=== PATIENT | female | born 1955 | race Caucasian/White ===

== ENCOUNTER → 2017-01-24 | Outpatient (CLI) | payer OTHER ==
[2015-10-31 09:20] VITALS: BP 148/70
[~2017-01-24] MED LIST: ALBU8.5H6 IH; ASPI-630 PO; CA C1TAB38 PO; CITA40TA12 PO; DOCU-109 PO; FAMO-63 PO; FERR324T5 PO; FURO-68 PO; INSU100I17 SQ; LOSA100T6 PO; METF500T4 PO; MULT1TAB97 PO; POTA20TA12 PO; SIMV20TA PO; SITA100T PO; TAMO20TA PO; TRAM-48 PO; VENL37.5 PO
--- NOTE | 2017-01-29 21:42 | RESP ---
DATE OF SERVICE: The patient underwent full PFTs dated 01/24/2017. FEV1 to FVC ratio was 79%, FEV1 was 97% of predicted at 2.53 liters, FVC was 93% of predicted at 3.18 liters. Vital capacity was 96% of predicted at 3.27 liters. Total lung capacity was not calculated. Diffusion capacity was slightly decreased. IMPRESSION: No evidence of significant restrictive or obstructive disorder. PRECIOUS RAYA MD DR: NJ/derrick JOB#: [id number] / [id number]
== END | disposition home or self-care (01) ==
LOC: PF 10:43
PROVIDERS: ATTEND Internal Medicine Pulmonary Disease
DX: R05 Cough (principal)
CPT/HCPCS: 94010; 94729

== ENCOUNTER → 2017-03-09 | Outpatient (CLI) | payer OTHER ==
[2015-10-31 09:20] VITALS: BP 148/70
--- NOTE | 2017-03-09 13:05 | RAD ---
CT chest without contrast high resolution 03/09/2017 Clinical indication: Chronic cough. Comparison: None. Technique: Multiple CT noncontrast images of the chest were obtained. Additional inspiratory and expiratory CT images were obtained. Coronal and sagittal reformations were obtained. PQRS Compliance Statement: One or more of the following individualized dose reduction techniques were utilized for this examination: 1. Automated exposure control 2. Adjustment of the mA and/or kV according to patient size 3. Use of iterative reconstruction technique Findings: Heart size is normal without significant pericardial effusion. Coronary artery calcifications are noted. No axillary lymphadenopathy. Mildly enlarged right paratracheal lymph nodes measuring up to 1.1 cm (series 4/image 18). No obvious hilar lymphadenopathy, though evaluation is limited due to lack of intravenous contrast. The central airways are patent. There is mild upper lobe predominant centrilobular and paraseptal emphysema. No pleural effusion or pneumothorax. There is a 4 mm noncalcified nodule in the right lower lobe (series 4/image 22). Subpleural reticular opacities and adjacent emphysema in the lung bases persist on prone imaging compatible with mild fibrosis. No significant air trapping. There is a medial right breast soft tissue density with adjacent biopsy clip measuring 1.9 x 1.0 cm (series 4/image 21). No destructive osseous lesions. Limited images of the upper abdomen grossly unremarkable. Impression: 1. Mild emphysema and mild bibasilar fibrosis. 2. Small, 4 mm, noncalcified right lower lobe pulmonary nodule. Follow-up noncontrast CT chest in 3 months is recommended. 3. Mildly enlarged paratracheal lymph nodes, these could be followed with the above findings. 4. Medial right breast irregular soft tissue nodule with adjacent biopsy clip measuring 1.9 cm. Indeterminate between benign and malignant. Correlation with mammography is recommended.
== END | disposition home or self-care (01) ==
LOC: CT 08:55
PROVIDERS: ATTEND Internal Medicine Pulmonary Disease
DX: N63 Unspecified lump in breast (principal); J43.9 Emphysema, unspecified; R91.1 Solitary pulmonary nodule; R05 Cough; R06.02 Shortness of breath
CPT/HCPCS: 71250

== ENCOUNTER → 2017-03-29 | Outpatient (CLI) | payer OTHER ==
[2015-10-31 09:20] VITALS: BP 148/70
--- NOTE | 2017-03-29 14:34 | CARD ---
APPROVED REPORT EXAM: Two-dimensional and M-mode echocardiogram with Doppler and color Doppler. Other Information Quality : Average Rhythm : NSR INDICATION Dyspnea 2D DIMENSIONS RVDd2.8 (2.9-3.5cm)Left Atrium(2D)4.0 (1.6-4.0cm) IVSd1.2 (0.7-1.1cm)Aortic Root(2D)2.7 (2.0-3.7cm) LVDd5.4 (3.9-5.9cm)LVOT Diameter2.0 (1.8-2.4cm) PWd1.2 (0.7-1.1cm)LVDs3.9 (2.5-4.0cm) FS (%) 26.7 %SV72.3 ml LVEF(%)51.7 (>50%) Aortic Valve AoV Peak Angel.139.3cm/sAoV VTI27.2cm AO Peak GR.7.8mmHgLVOT Peak Angel.84.5cm/s LVOT VTI 19.27cmAO Mean GR.4mmHg HUI (VTI)2.25cm2 Mitral Valve MV E Caovlifq74.8cm/sMV DECEL GORU504yz MV A Anaivevc97.3cm/sMV LOA13pf E/A Ratio1.1MV A Dbafifew813gu MVA (PHT)4.31cm2 TDI E/Lateral E'7.9E/Medial E'15.3 Pulmonary Valve PV Peak Hvchmvhp433.4cm/sPV Peak Grad.5mmHg RVOT VTI15.2cm Tricuspid Valve TR P. Vvuaexja841os/sRAP IACGJWEM4etIz TR Peak Gr.22pfCdZKFO36dcIr Pulmonary Vein S1 Actzacyt54.4cm/sD2 Qymdtmub64.1cm/s LEFT VENTRICLE The left ventricle is normal size. There is borderline concentric left ventricular hypertrophy. Left ventricle systolic function is normal. The Ejection Fraction is 50-55%. There is normal LV segmental wall motion. The left ventricular diastolic function and filling is normal for age. There is no ventr icular septal defect visualized. RIGHT VENTRICLE The right ventricle is normal size. The right ventricular systolic function is normal. ATRIA The left atrium size is normal. The right atrium size is normal. The interatrial septum is intact wit h no evidence for an atrial septal defect or patent foramen ovale as noted on 2-D or Doppler imaging. AORTIC VALVE The aortic valve is normal in structure and function. The aortic valve is trileaflet. Doppler and Col or Flow revealed trace aortic regurgitation. There is no significant aortic valvular stenosis. MITRAL VALVE The mitral valve leaflets are thickened. There is no mitral valve stenosis. Doppler and Color Flow re vealed no mitral valve regurgitation noted. TRICUSPID VALVE The tricuspid valve is normal in structure and function. Doppler and Color Flow revealed mild tricusp id regurgitation. The PA pressure was estimated at 38 mmHg. There is no tricuspid valve stenosis. PULMONIC VALVE The pulmonic valve is not well visualized. Doppler and Color Flow revealed no pulmonic valvular regur gitation. There is no pulmonic valvular stenosis. GREAT VESSELS The aortic root is normal in size. The ascending aorta is normal in size. Normal pulmonary venous maliha w (Doppler). The IVC is normal in size and collapses >50% with inspiration. PERICARDIAL EFFUSION There is no evidence of significant pericardial effusion. Critical Notification Critical Value: No <Conclusion> The left ventricle is normal size. Left ventricle systolic function is normal. The Ejection Fraction is 50-55%. There is borderline concentric left ventricular hypertrophy. There is no significant aortic valvular stenosis. Doppler and Color Flow revealed trace aortic regurgitation. Doppler and Color Flow revealed no mitral valve regurgitation noted. Doppler and Color Flow revealed mild tricuspid regurgitation. The PA pressure was estimated at 38 mmHg.
== END | disposition home or self-care (01) ==
LOC: ECHO 10:57
PROVIDERS: ATTEND Internal Medicine Cardiovascular Disease
DX: I08.2 Rheumatic disorders of both aortic and tricuspid valves (principal); R06.00 Dyspnea, unspecified
CPT/HCPCS: 93306

== ENCOUNTER → 2017-05-14 | Outpatient (CLI) | payer OTHER ==
[2015-10-31 09:20] VITALS: BP 148/70
--- NOTE | 2017-05-14 10:17 | RAD ---
Indication chronic cough. Congestion. Axial images through the paranasal sinuses were obtained. Images were reformatted in the coronal and sagittal planes. No similar imaging is available. The visualized brain appears unremarkable. The calvarium appears unremarkable. Mastoid air cells are normally aerated. The frontal sinuses and ethmoid air cells, maxillary sinuses are normally aerated. There is a small polyp or retention cyst in the right sphenoid sinus. There is perhaps some minimal fluid in the left sphenoid sinus. IMPRESSION: No significant finding seen associated with the paranasal sinuses. Small polyp or retention cyst in the sphenoid sinus. There may be a tiny amount of fluid in the sphenoid sinus as well PQRS Compliance Statement: One or more of the following individualized dose reduction techniques were utilized for this examination: 1. Automated exposure control 2. Adjustment of the mA and/or kV according to patient size 3. Use of iterative reconstruction technique
== END | disposition home or self-care (01) ==
LOC: CT 09:13
PROVIDERS: ATTEND Otolaryngology
DX: J34.1 Cyst and mucocele of nose and nasal sinus (principal)
CPT/HCPCS: 70486

== ENCOUNTER 2017-05-23 11:54 | Inpatient (IN) | payer OTHER ==
[~2017-05-23] VITALS: Ht 168.9 cm; Wt 108.0 kg
--- NOTE | 2017-05-23 12:08 | EKG ---
[facility] [address] [place] [address] Test Date: 2017-05-23 Test Time: 12:03:09 Pat Name: DARREL ORTEGA Department: Room: Gender: F Share[employer] Application Developer: : 1955 Requested By: TONY OLIVARES Order Number: [id number] Reading MD: Measurements Intervals Ewing Rate: 80 P: -24 WI: 136 QRS: -12 QRSD: 100 T: 43 QT: 384 QTc: 447 Interpretive Statements SINUS RHYTHM LEFTWARD AXIS QRS(T) CONTOUR ABNORMALITY CANNOT RULE OUT INFERIOR MYOCARDIAL DAMAGE RI6.01 Unconfirmed report No previous ECG available for comparison
[2017-05-23 12:16] LABS: POTASSIUM ISTAT 4.5 mmol/L (3.5-5.0)
[2017-05-23 12:24] LABS: BASO # 0.1 x10^3/uL (0.0-0.2); BASO % 1 % (0-3); EOS % 2 % (0-3); HEMATOCRIT 34.8 % (36.0-47.0); HEMOGLOBIN 12.2 g/dL (12.0-15.5); LYMPH # 1.5 x10^3/uL (1.0-4.8); LYMPH % 16 % (24-48); MEAN CORPUSCULAR HEMOGLOBIN 33 pg (25-35); MEAN CORPUSCULAR HGB CONC 35 g/dL (31-37); MEAN CORPUSCULAR VOLUME 94 fL (79-100); MONO % 6 % (0-9); NEUT % 75 % (31-73); PLATELET COUNT 234 x10^3/uL (140-400); RED BLOOD COUNT 3.69 x10^6/uL (3.50-5.40); RED CELL DISTRIBUTION WIDTH 15.6 % (11.5-14.5); WHITE BLOOD COUNT 9.6 x10^3/uL (4.0-11.0)
[2017-05-23 12:26] LABS: HCO3 ABG 22 mmol/L (21-28); PCO2 ABG 31 mmHg (35-46); PH ABG 7.48 (7.35-7.45); SAT O2 ABG 84 % (92-99)
[2017-05-23 12:28] LABS: FIO2 ABG 21; PO2 ABG 49 mmHg (65-108)
[2017-05-23] MEDS ORDERED: FAMOTIDINE 20 MG/2 ML VIAL IVP ONE (12:30)
[2017-05-23] MEDS ORDERED: ALBUTEROL SULFATE 2.5 MG/3 ML NEBU. NEB ONE (12:30)
[2017-05-23] MEDS ORDERED: IPRATRPIUM/ALBUTEROL 0.5/2.5MG 3 ML NEBU. NEB ONE (12:30)
[2017-05-23] MEDS ORDERED: diphenhydrAMINE 50 MG/ML VIAL IVP ONE (12:30)
[2017-05-23] MEDS ORDERED: methylPREDNISolone SOD SUCC PF 125 MG/2 ML VIAL. IV ONE (12:30)
[2017-05-23 12:35] LABS: INR 1.1 (0.8-1.1); PROTHROMBIN TIME PATIENT 13.1 SEC (11.7-14.0)
[2017-05-23 12:36] LABS: CALCIUM 9.2 mg/dL (8.5-10.1); CREATININE 0.9 mg/dL (0.6-1.0); GFR 63.4
[2017-05-23 12:40] LABS: ALBUMIN 3.6 g/dL (3.4-5.0); ALBUMIN/GLOBULIN RATIO 0.8 (1.0-1.7); MAGNESIUM 1.8 mg/dL (1.8-2.4); TOTAL BILIRUBIN 1.6 mg/dL (0.2-1.0); TOTAL PROTEIN 8.2 g/dL (6.4-8.2)
[2017-05-23 12:41] LABS: POTASSIUM 4.6 mmol/L (3.5-5.1)
[2017-05-23] MEDS ORDERED: CONTRAST GIVEN MC PRN (12:45)
[2017-05-23] MEDS ORDERED: IOHEXOL 300 MG/ML 75 ML VIAL IV ONE (12:45)
--- NOTE | 2017-05-23 12:48 | RAD ---
Indication coughing and wheezing. Shortness of air. A single view of the chest was obtained and is compared to an exam 03/07/2010. Heart size and pulmonary vessels are within normal limits. A focal infiltrate is not seen. Significant pleural fluid is not present. The bony structures appear grossly intact IMPRESSION: No acute finding apparent in the chest
--- NOTE | 2017-05-23 13:26 | RAD ---
EXAM: CT ANGIOGRAPHY OF THE CHEST WITH AND WITHOUT INTRAVENOUS CONTRAST. HISTORY: Hypoxia, shortness of breath. TECHNIQUE: Computed tomographic angiography of the chest was performed before and after the intravenous administration of 60 mL Omnipaque 300. 3-D maximum intensity projections were also performed. COMPARISON: 03/09/2017. FINDINGS: Images of the upper abdomen reveal an ill-defined region of hypoattenuation within the left hepatic lobe and caudate lobe, most likely representing focal steatosis. The liver and spleen are at least mildly enlarged. Bone windows reveal no suspicious lesions. No pulmonary emboli are identified. There is no aortic dissection or aneurysm. There are prominent lymph nodes within the lateral aortic and lower right peritracheal territories. A lateral aortic node measures 18 bilateral millimeters. A low right paratracheal node measures 17 x 15 mm. There are also mildly prominent bilateral hilar nodes. There is no pleural or pericardial effusion. The heart is not enlarged. There are atherosclerotic calcifications of the coronary arteries. There is moderate paraseptal emphysema in the apices. Centrilobular emphysema is relatively mild. There is also some interstitial line thickening in a subpleural and basilar distribution. IMPRESSION: 1. No pulmonary embolism. 2. Findings suggesting with mild interstitial lung disease. Correlate with pulmonary function tests. 3. Prominent mediastinal lymph nodes can be seen in the setting of interstitial lung disease or may be reactive. There are more prominent than on the recent study. This could be followed if there is persistent concern. 4. Moderate paraseptal and mild centrilobular emphysema. 5. An ill-defined hypoattenuating region in the left hepatic lobe is most likely focal steatosis. MRI could further characterize if there is persistent concern. 6. At least mild hepatosplenomegaly. *One or more of the following individualized dose reduction techniques were utilized for this examination: 1. Automated exposure control. 2. Adjustment of the mA and/or kV according to patient size. 3. Use of iterative reconstruction technique.
--- NOTE | 2017-05-23 13:52 | PHYS DOC ---
Past Medical History Past Medical History: Asthma, Cancer, Diabetes-Type II, GERD, Hypertension Additional Past Medical Histor: R breast cancer Past Surgical History: Hysterectomy, Other Additional Past Surgical Histo: right partial mastectomy Additional Information: stopped in 1984 Alcohol Use: None Drug Use: None Adult General Chief Complaint Chief Complaint: SHORTNESS OF BREATH HPI HPI Patient is a 62 year old female who presents with 2 days of increasing shortness of breath and cough. Pt has been battling "bronchitis" for "a long time" and this episode worsened over the last two days. She went to PCP office and Sats were in 80s%, sent to ED by EMS on O2, which improved her symptoms some. She denies fevers, intermittently has chest "tightness", reports distant history of smoking, has had cardiac and pulmonary workup for symptoms without clear diagnosis. PCP is Dr. Waters Review of Systems Review of Systems Constitutional: Denies fever or chills [] Eyes: Denies change in visual acuity, redness, or eye pain [] HENT: Denies nasal congestion or sore throat [] Respiratory: Denies cough or shortness of breath [] Cardiovascular: No additional information not addressed in HPI [] GI: Denies abdominal pain, nausea, vomiting, bloody stools or diarrhea [] : Denies dysuria or hematuria [] Musculoskeletal: Denies back pain or joint pain [] Integument: Denies rash or skin lesions [] Neurologic: Denies headache, focal weakness or sensory changes [] Endocrine: Denies polyuria or polydipsia [] Current Medications Current Medications Current Medications Medications (Trade) Dose Ordered Sig/Negro Start Time Stop Time Status Last Admin Dose Admin Albuterol Sulfate (Ventolin Neb Soln) 2.5 mg 1X ONCE 05/23/17 12:30 05/23/17 12:31 DC 05/23/17 12:11 2.5 MG Albuterol/ Ipratropium (Duoneb) 3 ml 1X ONCE 05/23/17 12:30 05/23/17 12:31 DC 05/23/17 12:11 3 ML Diphenhydramine HCl (Benadryl) 50 mg 1X ONCE 05/23/17 12:30 05/23/17 12:31 DC 05/23/17 12:34 50 MG Famotidine (Pepcid) 40 mg 1X ONCE 05/23/17 12:30 05/23/17 12:31 DC 05/23/17 12:36 40 MG Fentanyl Citrate (Fentanyl 2ml Vial) 50 mcg 1X ONCE 05/23/17 14:00 05/23/17 14:01 DC 05/23/17 14:15 50 MCG Info (Do NOT chart on this entry -- for MONITORING) 1 each PRN DAILY PRN 05/23/17 12:45 05/25/17 12:44 Iohexol (Omnipaque 300 Mg/ml) 60 ml 1X ONCE 05/23/17 12:45 05/23/17 12:46 DC 05/23/17 12:57 60 ML Methylprednisolone Sodium Succinate (SOLU-Medrol 125MG VIAL) 125 mg 1X ONCE 05/23/17 12:30 05/23/17 12:31 DC 05/23/17 12:32 125 MG Allergies Allergies Allergies Coded Allergies Type Severity Reaction Last Updated Verified Iodinated Contrast- Oral and IV Dye Allergy Intermediate 05/23/17 Yes Sulfa (Sulfonamide Antibiotics) Allergy Intermediate 05/23/17 Yes Physical Exam Physical Exam Constitutional: Well developed, well nourished, moderate resp distress, talks in shortened sentences HENT: Normocephalic, atraumatic, bilateral external ears normal, oropharynx moist, no oral exudates, nose normal. [] Eyes: PERRLA, EOMI, conjunctiva normal, no discharge. [] Neck: Normal range of motion, no tenderness, supple, no stridor. [] Cardiovascular:Heart rate regular with rhythm, no murmur [] Lungs & Thorax: Bilateral breath sounds , poor air movement, faint exp wheeze Abdomen: Bowel sounds normal, soft, no tenderness, no masses, no pulsatile masses. [] Skin: Warm, dry, no erythema, no rash. [] Back: No tenderness, no CVA tenderness. [] Extremities: No tenderness, no cyanosis, no clubbing, ROM intact, trace bilateral lower ext edema, neg homens Neurologic: Alert and oriented X 3, normal motor function, normal sensory function, no focal deficits noted. [] Psychologic: Affect normal, judgement normal, mood normal. [] Current Patient Data Vital Signs Vital Signs Date Time Temp Pulse Resp B/P (MAP) Pulse Ox O2 Delivery O2 Flow Rate FiO2 05/23/17 12:18 83 Room Air 05/23/17 11:55 98.3 90 26 153/69 (97) 2.0 98.3 Lab Values Laboratory Tests Test 05/23/17 12:00 05/23/17 12:01 05/23/17 12:10 White Blood Count 9.6 x10^3/uL (4.0-11.0) Red Blood Count 3.69 x10^6/uL (3.50-5.40) Hemoglobin 12.2 g/dL (12.0-15.5) Hematocrit 34.8 % (36.0-47.0) L Mean Corpuscular Volume 94 fL (79-100) Mean Corpuscular Hemoglobin 33 pg (25-35) Mean Corpuscular Hemoglobin Concent 35 g/dL (31-37) Red Cell Distribution Width 15.6 % (11.5-14.5) H Platelet Count 234 x10^3/uL (140-400) Neutrophils (%) (Auto) 75 % (31-73) H Lymphocytes (%) (Auto) 16 % (24-48) L Monocytes (%) (Auto) 6 % (0-9) Eosinophils (%) (Auto) 2 % (0-3) Basophils (%) (Auto) 1 % (0-3) Neutrophils # (Auto) 7.2 x10^3uL (1.8-7.7) Lymphocytes # (Auto) 1.5 x10^3/uL (1.0-4.8) Monocytes # (Auto) 0.6 x10^3/uL (0.0-1.1) Eosinophils # (Auto) 0.2 x10^3/uL (0.0-0.7) Basophils # (Auto) 0.1 x10^3/uL (0.0-0.2) Prothrombin Time 13.1 SEC (11.7-14.0) Prothrombin Time INR 1.1 (0.8-1.1) Sodium Level 139 mmol/L (136-145) Potassium Level 4.6 mmol/L (3.5-5.1) Chloride Level 101 mmol/L (98-107) Carbon Dioxide Level 27 mmol/L (21-32) Anion Gap 11 (6-14) 15 mmol/L (6-14) H Blood Urea Nitrogen 18 mg/dL (7-20) Creatinine 0.9 mg/dL (0.6-1.0) Estimated GFR (Cockcroft-Gault) 63.4 BUN/Creatinine Ratio 20 (6-20) Glucose Level 139 mg/dL (70-99) H 138 mg/dL (70-99) H Calcium Level 9.2 mg/dL (8.5-10.1) Magnesium Level 1.8 mg/dL (1.8-2.4) Total Bilirubin 1.6 mg/dL (0.2-1.0) H Aspartate Amino Transferase (AST) 64 U/L (15-37) H Alanine Aminotransferase (ALT) 36 U/L (14-59) Alkaline Phosphatase 116 U/L (46-116) Troponin I Quantitative < 0.017 ng/mL (0.000-0.055) QB-Zxa-A-Type Natriuretic Peptide 238 pg/mL (0-124) H Total Protein 8.2 g/dL (6.4-8.2) Albumin 3.6 g/dL (3.4-5.0) Albumin/Globulin Ratio 0.8 (1.0-1.7) L O2 Saturation 84 % (92-99) L Arterial Blood pH 7.48 (7.35-7.45) H Arterial Blood pCO2 at Patient Temp 31 mmHg (35-46) L Arterial Blood pO2 at Patient Temp 49 mmHg (65-108) *L Arterial Blood HCO3 22 mmol/L (21-28) Arterial Blood Base Excess 0 mmol/L (-3-3) FiO2 21 POC Hemoglobin 12.2 g/dL (12-15) POC Hematocrit 36 % (36-40) POC Sodium 139 mmol/L (135-145) POC Potassium 4.5 mmol/L (3.5-5.0) POC Chloride 100 mmol/L (98-110) POC Total CO2 30 mmol/L (23-32) POC Blood Urea Nitrogen 22 mg/dL (8-26) POC Creatinine 1.1 mg/dL (0.5-1.4) POC Ionized Calcium (Jenni) 1.06 mmol/L (1.13-1.32) L Laboratory Tests 05/23/17 12:00 Laboratory Tests 05/23/17 12:00 05/23/17 12:10 EKG EKG 80 bpm, sinus, normal axis, normal intervals, no ST elevation or depression, nonischemic T waves, interpreted by me[] Radiology/Procedures Radiology/Procedures CTA: IMPRESSION: 1. No pulmonary embolism. 2. Findings suggesting with mild interstitial lung disease. Correlate with pulmonary function tests. 3. Prominent mediastinal lymph nodes can be seen in the setting of interstitial lung disease or may be reactive. There are more prominent than on the recent study. This could be followed if there is persistent concern. 4. Moderate paraseptal and mild centrilobular emphysema. 5. An ill-defined hypoattenuating region in the left hepatic lobe is most likely focal steatosis. MRI could further characterize if there is persistent concern. 6. At least mild hepatosplenomegaly.[] Course & Med Decision Making Course & Med Decision Making Pertinent Labs and Imaging studies reviewed. (See chart for details) Patient was given oxygen and did improve. She was hypoxic but the oxygen levels improved her hypoxia. Patient's CTA shows interstitial lung disease as well as signs of COPD. She received breathing treatments and 1 dose of by mouth's prednisone here in the department. Will admit the patient for ongoing management , consult for pulmonary placed. Dr. Waters accepted this patient Dragon Disclaimer Dragon Disclaimer This electronic medical record was generated, in whole or in part, using a voice recognition dictation system. Departure Departure Impression: Primary Impression: Acute respiratory failure Disposition: ADMITTED INPATIENT Admitting Physician: Nadja Waters Condition: GUARDED Referrals: NADJA WATERS MD (PCP) TONY OLIVARES MD May 23, 2017 13:52
[2017-05-23] MEDS ORDERED: fentaNYL PF VIAL 100 MCG/2 ML VIAL IV ONE (14:00)
[2017-05-23] MEDS ORDERED: predniSONE 20 MG TABLET PO ONE (14:30)
[2017-05-23 15:00] VITALS: BP 139/69
[2017-05-23] MEDS ORDERED: AMLO5TAB4 PO (17:03)
[2017-05-23] MEDS ORDERED: INSU100C SQ (17:03)
[2017-05-23] MEDS ORDERED: INSU100I13 SQ (17:03)
[2017-05-23] MEDS ORDERED: MAGN400T3 PO (17:03)
[2017-05-23] MEDS ORDERED: ALPR0.254 PO (17:03)
[2017-05-23] MEDS ORDERED: NAPR250T6 PO (17:03)
[2017-05-23] MEDS ORDERED: TIZA4TAB PO (17:03)
[2017-05-23] MEDS ORDERED: LIDO700A39 TP (17:03)
[2017-05-23] MEDS ORDERED: CHOL10003 PO (17:03)
[2017-05-23] MEDS ORDERED: MULT-245 PO (17:03)
[2017-05-23] MEDS ORDERED: MONT10TA9 PO (17:03)
[2017-05-23] MEDS ORDERED: BECL8.7A6 IH (17:03)
[2017-05-23] MEDS ORDERED: FLUT9.9S NS (17:03)
[2017-05-23] MEDS ORDERED: PANT40TA5 PO (17:03)
[2017-05-23] MEDS ORDERED: ALBUTEROL SULFATE 8GM INHALER. IH PRN (18:00)
[2017-05-23] MEDS ORDERED: LIDOCAINE (700MG/PATCH) PATCH. TP PRN (18:00)
[2017-05-23] MEDS ORDERED: tiZANidine 4 MG TABLET. PO PRN (18:00)
[2017-05-23] MEDS ORDERED: NAPROXEN 250 MG TABLET PO PRN (18:00)
[2017-05-23] MEDS ORDERED: HYDR-2762 PO (18:01)
[2017-05-23] MEDS: HYDROcodone/APAP 7.5/325MG 1 TAB TABLET PO PRN (18:29)
[2017-05-23] MEDS ORDERED: ALBUTEROL SULFATE 2.5 MG/3 ML NEBU. NEB PRN (18:30)
[2017-05-23 19:00] VITALS: BP 143/63
[2017-05-23] MEDS: BUDESONIDE 0.5 MG/2 ML NEBU. NEB SCH (19:32)
[2017-05-23] MEDS ORDERED: NON FORMULARY ITEM (Insulin Lispro (Humalog) 100 UNIT) SQ SCH (21:00)
[2017-05-23] MEDS ORDERED: NON FORMULARY ITEM (Beclomethasone Dipropionate (Qvar 80MCG Inhaler) 1 PUFF) IH SCH (21:00)
[2017-05-23] MEDS: MONTELUKAST SODIUM 10 MG TABLET. PO SCH (23:00)
[2017-05-23] MEDS: MAGNESIUM OXIDE 400 MG TABLET PO SCH (23:01)
[2017-05-23] MEDS: SIMVASTATIN 20 MG TABLET PO SCH (23:01)
[2017-05-23] MEDS: traMADol 50 MG TABLET PO SCH (23:01)
[2017-05-23] MEDS: CHOLECALCIFEROL (VITAMIN D3) 1,000 UNIT TABLET PO SCH (23:01)
[2017-05-23] MEDS: ALPRAZolam 0.25 MG TABLET PO PRN (23:05)
[2017-05-23 23:14] VITALS: BP 137/51
[2017-05-23] MEDS: INSULIN DETEMIR 300 UNITS/3 ML INSULN.PEN. SQ SCH (23:17)
[2017-05-24 03:00] VITALS: BP 148/71
[2017-05-24 05:51] LABS: BASO % 0 % (0-3); EOS % 0 % (0-3); HEMATOCRIT 32.8 % (36.0-47.0); HEMOGLOBIN 11.3 g/dL (12.0-15.5); LYMPH # 0.8 x10^3/uL (1.0-4.8); LYMPH % 9 % (24-48); MEAN CORPUSCULAR HEMOGLOBIN 33 pg (25-35); MEAN CORPUSCULAR HGB CONC 35 g/dL (31-37); MEAN CORPUSCULAR VOLUME 95 fL (79-100); MONO % 6 % (0-9); NEUT % 85 % (31-73); PLATELET COUNT 216 x10^3/uL (140-400); RED BLOOD COUNT 3.46 x10^6/uL (3.50-5.40); RED CELL DISTRIBUTION WIDTH 15.1 % (11.5-14.5); WHITE BLOOD COUNT 9.7 x10^3/uL (4.0-11.0)
[2017-05-24 06:19] LABS: ALBUMIN 3.3 g/dL (3.4-5.0); ALBUMIN/GLOBULIN RATIO 0.7 (1.0-1.7); CALCIUM 9.3 mg/dL (8.5-10.1); GFR 56.2; POTASSIUM 4.1 mmol/L (3.5-5.1); TOTAL BILIRUBIN 0.9 mg/dL (0.2-1.0); TOTAL PROTEIN 8.2 g/dL (6.4-8.2)
[2017-05-24] MEDS: PANTOPRAZOLE 40 MG TABLET.DR. PO SCH (06:35)
[2017-05-24] MEDS ORDERED: INSULIN ASPART 300 UNITS/3 ML INSULN.PEN SQ SCH (07:30)
[2017-05-24] MEDS: INSULIN ASPART 300 UNITS/3 ML INSULN.PEN SQ SCH ×4 (07:30→17:09)
[2017-05-24 07:35] VITALS: BP 143/59
[2017-05-24] MEDS: BUDESONIDE 0.5 MG/2 ML NEBU. NEB SCH ×2 (08:00→20:36)
[2017-05-24] MEDS: FUROSEMIDE 40 MG TABLET. PO SCH (08:35)
[2017-05-24] MEDS: MULTIVITAMIN with MINERAL TABLET. PO SCH (08:35)
[2017-05-24] MEDS: MAGNESIUM OXIDE 400 MG TABLET PO SCH ×2 (08:35→20:49)
[2017-05-24] MEDS: ASPIRIN CHEWABLE 81 MG TABLET. PO SCH (08:35)
[2017-05-24] MEDS: POTASSIUM CHLORIDE 20 MEQ TABLET.ER. PO SCH (08:36)
[2017-05-24] MEDS: CHOLECALCIFEROL (VITAMIN D3) 1,000 UNIT TABLET PO SCH ×2 (08:36→20:49)
[2017-05-24] MEDS: FERROUS SULFATE 325 MG TABLET. PO SCH (08:36)
[2017-05-24] MEDS: amLODIPine BESYLATE 5 MG TABLET PO SCH (08:36)
[2017-05-24] MEDS: LOSARTAN POTASSIUM 50 MG TABLET. PO SCH (08:37)
[2017-05-24] MEDS: traMADol 50 MG TABLET PO SCH ×4 (08:38→20:51)
[2017-05-24] MEDS: FLUTICASONE 50MCG/NASAL SPRAY 16GM BOTTLE. NS SCH (08:38)
[2017-05-24] MEDS: INSULIN DETEMIR 300 UNITS/3 ML INSULN.PEN. SQ SCH ×2 (08:49→20:59)
[2017-05-24] MEDS: TAMOXIFEN 10 MG TABLET PO SCH (08:50)
--- NOTE | 2017-05-24 09:36 | PDOC ---
Provider Note Provider Note Patient seen. History and Physical dictated. See dictation# [id number] JIMMIE WATERS MD May 24, 2017 09:36
[2017-05-24] MEDS ORDERED: methylPREDNISolone SOD SUCC PF 40 MG/ML VIAL. IV ONE (10:00)
--- NOTE | 2017-05-24 10:19 | HP ---
ADMIT DATE: 05/23/2017 REASON FOR ADMISSION: Dyspnea. HISTORY OF PRESENT ILLNESS: This 62-year-old female who has recently had persistent coughing for several months and who had extensive workup including visits to the army helicopter pilot, key account director and ENT specialist, started getting worse for last 2 weeks. The patient became very short of breath. She went to the ENT specialist, who recommended further ENT workup. When she came to the office yesterday, her oxygen saturation was 80%. She has been coughing, but the mucous has been clear. She denies any fever, chills, nausea, vomiting. She just gets extremely tired and cannot do anything. In the office, her oxygen saturation was 80%. The patient was placed on oxygen by nasal cannula 3 liters per minute, her oxygen saturation improved to 92%. 911 was called and the patient was transferred to [facility] Emergency Room and was subsequently admitted for acute respiratory failure with hypoxia. Extensive workup as outpatient for her cough has not been productive so far. Cardiac workup including echocardiogram did not show any cardiac etiology. She does have gastroesophageal reflux disease very significant, but that does not account for all the other symptoms that she has. Previous pulmonary workup was not significant as per Pulmonology, did not show asthma. CT scan of chest here showed mild interstitial lung disease and no significant lymphadenopathy, no evidence of PE. LABORATORY FINDINGS: Show WBC count of 9.6; hemoglobin 12.2; platelet count 234,000. Sodium 139, potassium 4.5, creatinine 1.1, glucose 138, BUN 21, creatinine 1.0, magnesium 2.0 but albumin is 3.3. ABG revealed pH 7.48, pCO2 31, pO2 49. INR was 1.1. The patient was admitted because of the acute respiratory failure. REVIEW OF SYSTEMS: The patient is complaining of persistent cough. No complaints of nausea, vomiting, diarrhea. She admits to occasional heartburn. She just feels extremely tired and weak. She denies any fevers or chills. The patient does have chronic swelling of the legs, but they are not worse at this time. No nausea, vomiting, diarrhea or constipation. No chest pains, palpitations or dizziness. Other systems were reviewed and are negative. PAST MEDICAL HISTORY: The patient has history of fatigue, non-morbid obesity due to excess calories, allergic rhinitis, mild intermittent allergic bronchitis, diabetic neuropathy, diabetes type 2, malignant neoplasm of the right female breast, hypertension, depression, edema which is chronic, hyperlipidemia, anemia, compression fracture of the L1. PAST SURGICAL HISTORY: The patient had breast biopsy. In 2009, she had right mastectomy, hysterectomy in 1998. ALLERGIES: THE PATIENT IS ALLERGIC TO SULFA AND IODINATED CONTRAST. FAMILY HISTORY: Father had lymphoma, hypertension and stroke. Mother had hypertension and lymphoma. SOCIAL HISTORY: Currently , former smoker. No history of alcoholism or drug abuse. MEDICATIONS: I have reviewed the medications. Please refer the orders. PHYSICAL EXAMINATION: VITAL SIGNS: Temperature 97.5, pulse 69 per minute, respirations per minute, blood pressure 148/71 mmHg. GENERAL: The patient is a middle-aged female who is alert and oriented x 3, obese and in mild respiratory distress. Yesterday, she was in [id number] respiratory distress. She is weak, oxygen saturation today is 93%. HEENT: The patient is alert, oriented. Throat, minimal congestion. EYES: Pupils equal, reacting to light. EARS: Examined yesterday and unremarkable. NECK: JVP normal. No thyromegaly. Trachea midline. LUNGS: Bilateral basilar rales, somewhat less than yesterday. CARDIOVASCULAR: S1, S2 regular. ABDOMEN: Soft, nontender, no guarding, no rigidity, obese. Bowel sounds present. EXTREMITIES: Chronic edema of the lower extremities. No calf tenderness. Actually the swelling is better than previously. CENTRAL NERVOUS SYSTEM: Generalized weakness. Moves all extremities, alert and oriented. IMPRESSION: 1. Acute hypoxic respiratory failure, etiology not clear, could be due to interstitial lung disease with exacerbation, clinically no infection. Previous workup for persistent cough has been negative except for the reflux esophagitis. Previous pulmonary workup did not show asthma. Previous cardiology workup including echocardiogram was unremarkable and all this workup was done recently. 2. Persistent cough. Continue hydrocodone. I will add Tessalon Perles and I will give her another dose of IV steroids this morning. 3. 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 4. Hypertension. 5. Physical deconditioning. 6. History of right breast cancer with mastectomy. 7. Allergic rhinitis. 8. Non-morbid obesity. 9. Hypertension. 10. Hyperlipidemia. PLAN: Consult Dr. Roy for pulmonary evaluation and management. I will give her 1 dose of IV steroid, use Tessalon Perles and hydrocodone for cough, continue oxygenation. For details, please refer to the orders. JIMMIE WATERS MD DR: ZANDER/derrick JOB#: [id number] / [id number]
[2017-05-24 10:30] VITALS: BP 126/61
[2017-05-24 11:11] LABS: PLT ESTIMATE ADEQUATE (ADEQUATE)
[2017-05-24 11:12] LABS: ANISOCYTOSIS SLIGHT; OVALOCYTES FEW; POLYCHROMASIA PRESENT; TEAR DROP CELLS OCC
[2017-05-24] MEDS: BENZONATATE 100 MG CAPSULE. PO SCH ×3 (12:14→20:51)
[2017-05-24] MEDS: HYDROcodone/APAP 7.5/325MG 1 TAB TABLET PO PRN (14:23)
[2017-05-24 14:34] VITALS: BP 132/68
--- NOTE | 2017-05-24 17:43 | PDOC ---
PULMONARY PROGRESS NOTES Vitals Vital Signs Date Time Temp Pulse Resp B/P (MAP) Pulse Ox O2 Delivery O2 Flow Rate FiO2 05/24/17 17:06 Nasal Cannula 3.5 05/24/17 14:34 97.9 62 20 132/68 (89) 95 97.9 Labs Laboratory Tests Test 05/23/17 12:00 05/23/17 12:01 05/23/17 12:10 05/23/17 17:13 White Blood Count 9.6 x10^3/uL (4.0-11.0) Red Blood Count 3.69 x10^6/uL (3.50-5.40) Hemoglobin 12.2 g/dL (12.0-15.5) Hematocrit 34.8 % (36.0-47.0) Mean Corpuscular Volume 94 fL (79-100) Mean Corpuscular Hemoglobin 33 pg (25-35) Mean Corpuscular Hemoglobin Concent 35 g/dL (31-37) Red Cell Distribution Width 15.6 % (11.5-14.5) Platelet Count 234 x10^3/uL (140-400) Neutrophils (%) (Auto) 75 % (31-73) Lymphocytes (%) (Auto) 16 % (24-48) Monocytes (%) (Auto) 6 % (0-9) Eosinophils (%) (Auto) 2 % (0-3) Basophils (%) (Auto) 1 % (0-3) Neutrophils # (Auto) 7.2 x10^3uL (1.8-7.7) Lymphocytes # (Auto) 1.5 x10^3/uL (1.0-4.8) Monocytes # (Auto) 0.6 x10^3/uL (0.0-1.1) Eosinophils # (Auto) 0.2 x10^3/uL (0.0-0.7) Basophils # (Auto) 0.1 x10^3/uL (0.0-0.2) Prothrombin Time 13.1 SEC (11.7-14.0) Prothromb Time International Ratio 1.1 (0.8-1.1) Sodium Level 139 mmol/L (136-145) Potassium Level 4.6 mmol/L (3.5-5.1) Chloride Level 101 mmol/L (98-107) Carbon Dioxide Level 27 mmol/L (21-32) Anion Gap 11 (6-14) 15 mmol/L (6-14) Blood Urea Nitrogen 18 mg/dL (7-20) Creatinine 0.9 mg/dL (0.6-1.0) Estimated GFR (Cockcroft-Gault) 63.4 BUN/Creatinine Ratio 20 (6-20) Glucose Level 139 mg/dL (70-99) 138 mg/dL (70-99) Calcium Level 9.2 mg/dL (8.5-10.1) Magnesium Level 1.8 mg/dL (1.8-2.4) Total Bilirubin 1.6 mg/dL (0.2-1.0) Aspartate Amino Transf (AST/SGOT) 64 U/L (15-37) Alanine Aminotransferase (ALT/SGPT) 36 U/L (14-59) Alkaline Phosphatase 116 U/L (46-116) Troponin I Quantitative < 0.017 ng/mL (0.000-0.055) WC-Eik-Q-Type Natriuretic Peptide 238 pg/mL (0-124) Total Protein 8.2 g/dL (6.4-8.2) Albumin 3.6 g/dL (3.4-5.0) Albumin/Globulin Ratio 0.8 (1.0-1.7) O2 Saturation 84 % (92-99) Arterial Blood pH 7.48 (7.35-7.45) Arterial Blood pCO2 at Patient Temp 31 mmHg (35-46) Arterial Blood pO2 at Patient Temp 49 mmHg (65-108) Arterial Blood HCO3 22 mmol/L (21-28) Arterial Blood Base Excess 0 mmol/L (-3-3) FiO2 21 Bedside Hemoglobin 12.2 g/dL (12-15) Bedside Hematocrit 36 % (36-40) Bedside Sodium 139 mmol/L (135-145) Bedside Potassium 4.5 mmol/L (3.5-5.0) Bedside Chloride 100 mmol/L (98-110) Bedside Total CO2 30 mmol/L (23-32) Bedside Blood Urea Nitrogen 22 mg/dL (8-26) Bedside Creatinine 1.1 mg/dL (0.5-1.4) Bedside Ionized Calcium (Jenni) 1.06 mmol/L (1.13-1.32) Glucose (Fingerstick) 198 mg/dL (70-99) Test 05/23/17 23:00 05/24/17 05:30 05/24/17 07:38 05/24/17 11:57 Glucose (Fingerstick) 325 mg/dL (70-99) 138 mg/dL (70-99) 122 mg/dL (70-99) White Blood Count 9.7 x10^3/uL (4.0-11.0) Red Blood Count 3.46 x10^6/uL (3.50-5.40) Hemoglobin 11.3 g/dL (12.0-15.5) Hematocrit 32.8 % (36.0-47.0) Mean Corpuscular Volume 95 fL (79-100) Mean Corpuscular Hemoglobin 33 pg (25-35) Mean Corpuscular Hemoglobin Concent 35 g/dL (31-37) Red Cell Distribution Width 15.1 % (11.5-14.5) Platelet Count 216 x10^3/uL (140-400) Neutrophils (%) (Auto) 85 % (31-73) Lymphocytes (%) (Auto) 9 % (24-48) Monocytes (%) (Auto) 6 % (0-9) Eosinophils (%) (Auto) 0 % (0-3) Basophils (%) (Auto) 0 % (0-3) Neutrophils # (Auto) 8.3 x10^3uL (1.8-7.7) Lymphocytes # (Auto) 0.8 x10^3/uL (1.0-4.8) Monocytes # (Auto) 0.6 x10^3/uL (0.0-1.1) Eosinophils # (Auto) 0.0 x10^3/uL (0.0-0.7) Basophils # (Auto) 0.0 x10^3/uL (0.0-0.2) Segmented Neutrophils % 83 % (35-66) Band Neutrophils % 6 % (0-9) Lymphocytes % 7 % (24-48) Monocytes % 4 % (0-10) Platelet Estimate Adequate (ADEQUATE) Polychromasia Present Anisocytosis Slight Tear Drop Cells Occ Ovalocytes Few Sodium Level 137 mmol/L (136-145) Potassium Level 4.1 mmol/L (3.5-5.1) Chloride Level 99 mmol/L (98-107) Carbon Dioxide Level 29 mmol/L (21-32) Anion Gap 9 (6-14) Blood Urea Nitrogen 21 mg/dL (7-20) Creatinine 1.0 mg/dL (0.6-1.0) Estimated GFR (Cockcroft-Gault) 56.2 BUN/Creatinine Ratio 21 (6-20) Glucose Level 186 mg/dL (70-99) Calcium Level 9.3 mg/dL (8.5-10.1) Magnesium Level 2.0 mg/dL (1.8-2.4) Total Bilirubin 0.9 mg/dL (0.2-1.0) Aspartate Amino Transf (AST/SGOT) 23 U/L (15-37) Alanine Aminotransferase (ALT/SGPT) 29 U/L (14-59) Alkaline Phosphatase 108 U/L (46-116) Total Protein 8.2 g/dL (6.4-8.2) Albumin 3.3 g/dL (3.4-5.0) Albumin/Globulin Ratio 0.7 (1.0-1.7) Test 05/24/17 16:18 Glucose (Fingerstick) 240 mg/dL (70-99) Laboratory Tests Test 05/23/17 23:00 05/24/17 05:30 05/24/17 07:38 05/24/17 11:57 Glucose (Fingerstick) 325 mg/dL (70-99) 138 mg/dL (70-99) 122 mg/dL (70-99) White Blood Count 9.7 x10^3/uL (4.0-11.0) Red Blood Count 3.46 x10^6/uL (3.50-5.40) Hemoglobin 11.3 g/dL (12.0-15.5) Hematocrit 32.8 % (36.0-47.0) Mean Corpuscular Volume 95 fL (79-100) Mean Corpuscular Hemoglobin 33 pg (25-35) Mean Corpuscular Hemoglobin Concent 35 g/dL (31-37) Red Cell Distribution Width 15.1 % (11.5-14.5) Platelet Count 216 x10^3/uL (140-400) Neutrophils (%) (Auto) 85 % (31-73) Lymphocytes (%) (Auto) 9 % (24-48) Monocytes (%) (Auto) 6 % (0-9) Eosinophils (%) (Auto) 0 % (0-3) Basophils (%) (Auto) 0 % (0-3) Neutrophils # (Auto) 8.3 x10^3uL (1.8-7.7) Lymphocytes # (Auto) 0.8 x10^3/uL (1.0-4.8) Monocytes # (Auto) 0.6 x10^3/uL (0.0-1.1) Eosinophils # (Auto) 0.0 x10^3/uL (0.0-0.7) Basophils # (Auto) 0.0 x10^3/uL (0.0-0.2) Segmented Neutrophils % 83 % (35-66) Band Neutrophils % 6 % (0-9) Lymphocytes % 7 % (24-48) Monocytes % 4 % (0-10) Platelet Estimate Adequate (ADEQUATE) Polychromasia Present Anisocytosis Slight Tear Drop Cells Occ Ovalocytes Few Sodium Level 137 mmol/L (136-145) Potassium Level 4.1 mmol/L (3.5-5.1) Chloride Level 99 mmol/L (98-107) Carbon Dioxide Level 29 mmol/L (21-32) Anion Gap 9 (6-14) Blood Urea Nitrogen 21 mg/dL (7-20) Creatinine 1.0 mg/dL (0.6-1.0) Estimated GFR (Cockcroft-Gault) 56.2 BUN/Creatinine Ratio 21 (6-20) Glucose Level 186 mg/dL (70-99) Calcium Level 9.3 mg/dL (8.5-10.1) Magnesium Level 2.0 mg/dL (1.8-2.4) Total Bilirubin 0.9 mg/dL (0.2-1.0) Aspartate Amino Transf (AST/SGOT) 23 U/L (15-37) Alanine Aminotransferase (ALT/SGPT) 29 U/L (14-59) Alkaline Phosphatase 108 U/L (46-116) Total Protein 8.2 g/dL (6.4-8.2) Albumin 3.3 g/dL (3.4-5.0) Albumin/Globulin Ratio 0.7 (1.0-1.7) Test 05/24/17 16:18 Glucose (Fingerstick) 240 mg/dL (70-99) Medications Active Scripts Medications Dose Route/Sig Max Daily Dose Days Date Category Dose Instructions Hydrocodone-Apap 7.5-325 (Hydrocodone Bit/Acetaminophen) 1 Each Tablet 1 Tab PO PRN Q4HRS PRN 05/23/17 Reported Naproxen 250 Mg Tablet 250 Mg PO PRN 05/23/17 Reported Alprazolam 0.25 Mg Tablet 1 Tab PO TID PRN 05/23/17 Reported Tizanidine Hcl 4 Mg Tablet 1 Tab PO Q8HRS PRN 05/23/17 Reported Lidocaine 1 Each Adh..patch 1 Each TP Q12HR PRN 05/23/17 Reported Flonase Allergy Relief (Fluticasone Propionate) 9.9 Ml [place].susp 2 Sprays NS DAILY 05/23/17 Reported Qvar 80MCG Inhaler (Beclomethasone Dipropionate) 8.7 Gm Aer.w.adap 1 Puff IH BID 05/23/17 Reported Lantus Solostar (Insulin Glargine,Hum.rec.anlog) 100 Unit/1 Ml Insuln.pen 50 Unit SQ BID 05/23/17 Reported Humalog (Insulin Lispro) 100 Unit/1 Ml Cartridge 100 Unit SQ TID 05/23/17 Reported sliding scale bs 150-200 =2 units 201-250=4 units 251-300=6 units 301-350=8 units 351-400= 10 units >400 call Montelukast Sodium Tablet (Montelukast Sodium) 10 Mg Tablet 1 Tab PO HS 05/23/17 Reported Pantoprazole Sodium 40 Mg Tablet.dr 1 Tab PO DAILY 05/23/17 Reported Magnesium Oxide 400 Mg Tablet 1 Tab PO BID 05/23/17 Reported Vitamin D3 (Cholecalciferol (Vitamin D3)) 1,000 Unit Tablet 1 Tab PO BID 05/23/17 Reported Multi Vitamin Daily (Multivitamin) 1 Each Tablet 1 Each PO 05/23/17 Reported Norvasc (Amlodipine Besylate) 5 Mg Tablet 1 Tab PO DAILY 05/23/17 Reported Novolog Flexpen (Insulin Aspart) 100 Unit/1 Ml Insuln.pen 100 Unit SQ TIDAC 09/10/13 Reported Metformin Hcl 500 Mg Tablet 500 Mg PO QEVNG 09/10/13 Reported Losartan Potassium 100 Mg Tablet 100 Mg PO DAILY 09/10/13 Reported Albuterol Sulfate Hfa Inhaler (Albuterol Sulfate) 8.5 Gm Hfa.aer.ad 8.5 Gm IH PRN 09/10/13 Reported Ultram (Tramadol Hcl) 50 Mg Tablet 50 Mg PO QID 09/10/13 Reported Daily Multiple Vitamin (Multivitamin) 1 Each Tablet 1 Each PO DAILY 09/10/13 Reported Ferrous Sulfate 324 Mg Tablet.dr 65 Mg PO DAILY 09/10/13 Reported Aspirin 81 Mg Tab.chew 81 Mg PO DAILY 09/10/13 Reported Tamoxifen Citrate 20 Mg Tablet 20 Mg PO DAILY 09/10/13 Reported Zocor (Simvastatin) 20 Mg Tablet 20 Mg PO HS 09/10/13 Reported Lasix (Furosemide) 40 Mg Tablet 40 Mg PO DAILY 09/10/13 Reported Potassium Chloride 20 Meq Tab.er.prt 20 Meq PO DAILY 09/10/13 Reported Impression . NOTE DICTATED, PT SEE DR ROBERTS IN OFFICE ACUTE RESP FAILURE SEC TO AECOPD, ILD/FIBROSIS/ ADENOPATHY GERD SEE MY DICTATED NOTE THANKS WILL CONSULT SPEECH PRECIOUS RAYA MD May 24, 2017 17:43
[2017-05-24 19:00] VITALS: BP 134/56
[2017-05-24] MEDS: MONTELUKAST SODIUM 10 MG TABLET. PO SCH (20:49)
[2017-05-24] MEDS: SIMVASTATIN 20 MG TABLET PO SCH (20:51)
[2017-05-24 23:00] VITALS: BP 135/55
--- NOTE | 2017-05-25 02:37 | CONS ---
DATE OF CONSULTATION: 05/24/2017 ATTENDING PHYSICIAN: Nadja Pedraza M.D. CONSULTING PHYSICIAN: Precious Roy M.D. REASON FOR CONSULTATION: The patient seen in pulmonary consultation at the request of Dr. Pedraza for acute respiratory failure. The patient treated multiple times as an outpatient, failed outpatient treatment for exacerbation of COPD and pneumonia. HISTORY OF PRESENT ILLNESS: The patient is a 62-year-old female that has actually been seen in consultation by my associate, Dr. Shelby in the office. Apparently, she was complaining of shortness of breath and cough. She actually had a high resolution CT of the chest on 03/09/2017 revealing some mild fibrosis and emphysema. The fibrosis was very mild. She also had a nodule that apparently is due to be followed up. The patient has been having increasing shortness of breath, cough, mostly nonproductive for well over 2-3 weeks. She is being treated with steroids and antibiotics as an outpatient. She failed outpatient therapy. She was admitted and I was asked to see her in consultation. She also had some low grade fevers and some chest tightness. No hemoptysis. She had a CT angiogram, which revealed no evidence of pulmonary emboli. There was some evidence of interstitial lung disease at this time around along with prominent mediastinal adenopathy. There was moderate paraseptal and centrilobular emphysema. The patient denies any significant environmental occupational exposures. She has no new hobbies. She quit smoking in 1984. The patient was seen in Dr. Pedraza's office for followup was found to have saturations of 80% during the office visit. She was then transported to [place] by EMS. PAST MEDICAL HISTORY: 1. COPD. 2. Recurrent cough, was worked up in the past, high resolution CT of the chest on 03/19/2017 revealed some mild fibrosis. 3. Gastroesophageal reflux. 4. Type 2 diabetes. 5. Hypertension. 6. History of breast cancer, status post mastectomy. 7. Allergic rhinitis. 8. Hyperlipidemia. 9. Tobacco dependence in remission. PAST SURGICAL HISTORY: Breast biopsy. She had a mastectomy in 2009 and hysterectomy in 1998. ALLERGIES: Listed to SULFA and IODINATED CONTRAST. FAMILY HISTORY: Father had lymphoma, hypertension and stroke. Mother had hypertension and lymphoma. SOCIAL HISTORY: She is currently and worked as an [employer]. Quit tobacco in 1984. Denies any alcohol intake. REVIEW OF SYSTEMS: As indicated above, otherwise, a 10-point system was reviewed and negative. CURRENT MEDICATIONS: List was reviewed. HOME MEDICATION: List was likewise reviewed. Please see the MRAD. At home, the patient was on multiple inhalers. PHYSICAL EXAMINATION: GENERAL: The patient had a cough, mostly nonproductive during my evaluation. VITAL SIGNS: She is currently on 3 liters of oxygen supplementation, saturation greater than 92%. HEENT: Eyes, the sclerae were nonicteric. NECK: Jugular venous distention was not elevated. No lymphadenopathy. CHEST: Full expansion. LUNGS: Crackles in the bases, poor airway flow. CARDIOVASCULAR: Regular rate and rhythm with S1 and S2. No S3. ABDOMEN: Soft, nontender and obese. EXTREMITIES: No clubbing or cyanosis. Minimal edema. LABORATORY DATA: White count was normal. Hemoglobin and hematocrit were noted. Arterial blood gas; pH of 7.48, PaCO2 of 31 and pO2 of 49. Electrolytes were noted. BNP was slightly elevated. Troponin was normal. INR was 1.1. RADIOLOGICAL DATA: CT of the chest as indicated above. IMPRESSION: 1. Acute respiratory failure, multifactorial secondary to acute nonspecific bronchitis, possible pneumonia. 2. Mild pulmonary fibrosis best visualized on high resolution CT of the chest from 03/09/2017, interstitial lung disease seen on current CT. 3. No evidence of pulmonary embolism on current CT. 4. Mild mediastinal adenopathy. 5. Gastroesophageal reflux. 6. History of breast cancer, status post mastectomy. PLAN: 1. Recommend continue current medical management with nebulized treatments, steroids and oxygen supplementation. 2. It is certainly possible that the patient is developing progressive fibrosis and only time would tell if she is going to progress. Current CT is not very impressive. It is certainly possible that this may be related to chronic silent aspiration. The patient has significant gastroesophageal reflux. 3. Followup CT in 2 months. 4. Agree with Thomas Balbuena. 5. No need for antibiotics at this time. 7. Follow up in the office with Dr. Shelby once discharged. I do appreciate the privilege in sharing in the patient's care. PRECIOUS ROY MD DR: [place]/derrick JOB#: [id number] / [id number]
[2017-05-25 03:00] VITALS: BP 130/54
[2017-05-25] MEDS: PANTOPRAZOLE 40 MG TABLET.DR. PO SCH (06:50)
[2017-05-25 07:00] VITALS: BP 135/72
[2017-05-25] MEDS: INSULIN ASPART 300 UNITS/3 ML INSULN.PEN SQ SCH ×3 (07:30→11:30)
[2017-05-25] MEDS: BUDESONIDE 0.5 MG/2 ML NEBU. NEB SCH (08:40)
[2017-05-25] MEDS: FERROUS SULFATE 325 MG TABLET. PO SCH (08:49)
[2017-05-25] MEDS: CHOLECALCIFEROL (VITAMIN D3) 1,000 UNIT TABLET PO SCH (08:49)
[2017-05-25] MEDS: BENZONATATE 100 MG CAPSULE. PO SCH ×2 (08:49→13:43)
[2017-05-25] MEDS: MULTIVITAMIN with MINERAL TABLET. PO SCH (08:49)
[2017-05-25] MEDS: ALPRAZolam 0.25 MG TABLET PO PRN (08:49)
[2017-05-25] MEDS: FUROSEMIDE 40 MG TABLET. PO SCH (08:50)
[2017-05-25] MEDS: traMADol 50 MG TABLET PO SCH ×2 (08:50→12:56)
[2017-05-25] MEDS: POTASSIUM CHLORIDE 20 MEQ TABLET.ER. PO SCH (08:50)
[2017-05-25] MEDS: MAGNESIUM OXIDE 400 MG TABLET PO SCH (08:50)
[2017-05-25] MEDS: TAMOXIFEN 10 MG TABLET PO SCH (08:51)
[2017-05-25] MEDS: LOSARTAN POTASSIUM 50 MG TABLET. PO SCH (08:52)
[2017-05-25] MEDS: amLODIPine BESYLATE 5 MG TABLET PO SCH (08:52)
[2017-05-25] MEDS: ASPIRIN CHEWABLE 81 MG TABLET. PO SCH (08:52)
[2017-05-25] MEDS: FLUTICASONE 50MCG/NASAL SPRAY 16GM BOTTLE. NS SCH (08:54)
[2017-05-25] MEDS: INSULIN DETEMIR 300 UNITS/3 ML INSULN.PEN. SQ SCH (08:55)
--- NOTE | 2017-05-25 09:34 | PDOC ---
PULMONARY PROGRESS NOTES Subjective cough since december no soa Vitals Vital Signs Date Time Temp Pulse Resp B/P (MAP) Pulse Ox O2 Delivery O2 Flow Rate FiO2 05/25/17 08:52 60 135/72 05/25/17 08:50 18 Nasal Cannula 96.0 05/25/17 08:41 96 05/25/17 07:00 98.1 98.1 General: Alert, No acute distress Lungs: Other (occ wheezes) Cardiovascular: S1 Abdomen: Soft Neuro Exam: Alert Extremities: Other (1+edema) Labs Laboratory Tests Test 05/23/17 12:00 05/23/17 12:01 05/23/17 12:10 05/23/17 17:13 White Blood Count 9.6 x10^3/uL (4.0-11.0) Red Blood Count 3.69 x10^6/uL (3.50-5.40) Hemoglobin 12.2 g/dL (12.0-15.5) Hematocrit 34.8 % (36.0-47.0) Mean Corpuscular Volume 94 fL (79-100) Mean Corpuscular Hemoglobin 33 pg (25-35) Mean Corpuscular Hemoglobin Concent 35 g/dL (31-37) Red Cell Distribution Width 15.6 % (11.5-14.5) Platelet Count 234 x10^3/uL (140-400) Neutrophils (%) (Auto) 75 % (31-73) Lymphocytes (%) (Auto) 16 % (24-48) Monocytes (%) (Auto) 6 % (0-9) Eosinophils (%) (Auto) 2 % (0-3) Basophils (%) (Auto) 1 % (0-3) Neutrophils # (Auto) 7.2 x10^3uL (1.8-7.7) Lymphocytes # (Auto) 1.5 x10^3/uL (1.0-4.8) Monocytes # (Auto) 0.6 x10^3/uL (0.0-1.1) Eosinophils # (Auto) 0.2 x10^3/uL (0.0-0.7) Basophils # (Auto) 0.1 x10^3/uL (0.0-0.2) Prothrombin Time 13.1 SEC (11.7-14.0) Prothromb Time International Ratio 1.1 (0.8-1.1) Sodium Level 139 mmol/L (136-145) Potassium Level 4.6 mmol/L (3.5-5.1) Chloride Level 101 mmol/L (98-107) Carbon Dioxide Level 27 mmol/L (21-32) Anion Gap 11 (6-14) 15 mmol/L (6-14) Blood Urea Nitrogen 18 mg/dL (7-20) Creatinine 0.9 mg/dL (0.6-1.0) Estimated GFR (Cockcroft-Gault) 63.4 BUN/Creatinine Ratio 20 (6-20) Glucose Level 139 mg/dL (70-99) 138 mg/dL (70-99) Calcium Level 9.2 mg/dL (8.5-10.1) Magnesium Level 1.8 mg/dL (1.8-2.4) Total Bilirubin 1.6 mg/dL (0.2-1.0) Aspartate Amino Transf (AST/SGOT) 64 U/L (15-37) Alanine Aminotransferase (ALT/SGPT) 36 U/L (14-59) Alkaline Phosphatase 116 U/L (46-116) Troponin I Quantitative < 0.017 ng/mL (0.000-0.055) LA-Ciu-M-Type Natriuretic Peptide 238 pg/mL (0-124) Total Protein 8.2 g/dL (6.4-8.2) Albumin 3.6 g/dL (3.4-5.0) Albumin/Globulin Ratio 0.8 (1.0-1.7) O2 Saturation 84 % (92-99) Arterial Blood pH 7.48 (7.35-7.45) Arterial Blood pCO2 at Patient Temp 31 mmHg (35-46) Arterial Blood pO2 at Patient Temp 49 mmHg (65-108) Arterial Blood HCO3 22 mmol/L (21-28) Arterial Blood Base Excess 0 mmol/L (-3-3) FiO2 21 Bedside Hemoglobin 12.2 g/dL (12-15) Bedside Hematocrit 36 % (36-40) Bedside Sodium 139 mmol/L (135-145) Bedside Potassium 4.5 mmol/L (3.5-5.0) Bedside Chloride 100 mmol/L (98-110) Bedside Total CO2 30 mmol/L (23-32) Bedside Blood Urea Nitrogen 22 mg/dL (8-26) Bedside Creatinine 1.1 mg/dL (0.5-1.4) Bedside Ionized Calcium (Jenni) 1.06 mmol/L (1.13-1.32) Glucose (Fingerstick) 198 mg/dL (70-99) Test 05/23/17 23:00 05/24/17 05:30 05/24/17 07:38 05/24/17 11:57 Glucose (Fingerstick) 325 mg/dL (70-99) 138 mg/dL (70-99) 122 mg/dL (70-99) White Blood Count 9.7 x10^3/uL (4.0-11.0) Red Blood Count 3.46 x10^6/uL (3.50-5.40) Hemoglobin 11.3 g/dL (12.0-15.5) Hematocrit 32.8 % (36.0-47.0) Mean Corpuscular Volume 95 fL (79-100) Mean Corpuscular Hemoglobin 33 pg (25-35) Mean Corpuscular Hemoglobin Concent 35 g/dL (31-37) Red Cell Distribution Width 15.1 % (11.5-14.5) Platelet Count 216 x10^3/uL (140-400) Neutrophils (%) (Auto) 85 % (31-73) Lymphocytes (%) (Auto) 9 % (24-48) Monocytes (%) (Auto) 6 % (0-9) Eosinophils (%) (Auto) 0 % (0-3) Basophils (%) (Auto) 0 % (0-3) Neutrophils # (Auto) 8.3 x10^3uL (1.8-7.7) Lymphocytes # (Auto) 0.8 x10^3/uL (1.0-4.8) Monocytes # (Auto) 0.6 x10^3/uL (0.0-1.1) Eosinophils # (Auto) 0.0 x10^3/uL (0.0-0.7) Basophils # (Auto) 0.0 x10^3/uL (0.0-0.2) Segmented Neutrophils % 83 % (35-66) Band Neutrophils % 6 % (0-9) Lymphocytes % 7 % (24-48) Monocytes % 4 % (0-10) Platelet Estimate Adequate (ADEQUATE) Polychromasia Present Anisocytosis Slight Tear Drop Cells Occ Ovalocytes Few Sodium Level 137 mmol/L (136-145) Potassium Level 4.1 mmol/L (3.5-5.1) Chloride Level 99 mmol/L (98-107) Carbon Dioxide Level 29 mmol/L (21-32) Anion Gap 9 (6-14) Blood Urea Nitrogen 21 mg/dL (7-20) Creatinine 1.0 mg/dL (0.6-1.0) Estimated GFR (Cockcroft-Gault) 56.2 BUN/Creatinine Ratio 21 (6-20) Glucose Level 186 mg/dL (70-99) Calcium Level 9.3 mg/dL (8.5-10.1) Magnesium Level 2.0 mg/dL (1.8-2.4) Total Bilirubin 0.9 mg/dL (0.2-1.0) Aspartate Amino Transf (AST/SGOT) 23 U/L (15-37) Alanine Aminotransferase (ALT/SGPT) 29 U/L (14-59) Alkaline Phosphatase 108 U/L (46-116) Total Protein 8.2 g/dL (6.4-8.2) Albumin 3.3 g/dL (3.4-5.0) Albumin/Globulin Ratio 0.7 (1.0-1.7) Test 05/24/17 16:18 05/24/17 20:44 05/25/17 07:28 Glucose (Fingerstick) 240 mg/dL (70-99) 285 mg/dL (70-99) 95 mg/dL (70-99) Laboratory Tests Test 05/24/17 11:57 05/24/17 16:18 05/24/17 20:44 05/25/17 07:28 Glucose (Fingerstick) 122 mg/dL (70-99) 240 mg/dL (70-99) 285 mg/dL (70-99) 95 mg/dL (70-99) Medications Active Scripts Medications Dose Route/Sig Max Daily Dose Days Date Category Dose Instructions Hydrocodone-Apap 7.5-325 (Hydrocodone Bit/Acetaminophen) 1 Each Tablet 1 Tab PO PRN Q4HRS PRN 05/23/17 Reported Naproxen 250 Mg Tablet 250 Mg PO PRN 05/23/17 Reported Alprazolam 0.25 Mg Tablet 1 Tab PO TID PRN 05/23/17 Reported Tizanidine Hcl 4 Mg Tablet 1 Tab PO Q8HRS PRN 05/23/17 Reported Lidocaine 1 Each Adh..patch 1 Each TP Q12HR PRN 05/23/17 Reported Flonase Allergy Relief (Fluticasone Propionate) 9.9 Ml [place].susp 2 Sprays NS DAILY 05/23/17 Reported Qvar 80MCG Inhaler (Beclomethasone Dipropionate) 8.7 Gm Aer.w.adap 1 Puff IH BID 05/23/17 Reported Lantus Solostar (Insulin Glargine,Hum.rec.anlog) 100 Unit/1 Ml Insuln.pen 50 Unit SQ BID 05/23/17 Reported Humalog (Insulin Lispro) 100 Unit/1 Ml Cartridge 100 Unit SQ TID 05/23/17 Reported sliding scale bs 150-200 =2 units 201-250=4 units 251-300=6 units 301-350=8 units 351-400= 10 units >400 call Montelukast Sodium Tablet (Montelukast Sodium) 10 Mg Tablet 1 Tab PO HS 05/23/17 Reported Pantoprazole Sodium 40 Mg Tablet.dr 1 Tab PO DAILY 05/23/17 Reported Magnesium Oxide 400 Mg Tablet 1 Tab PO BID 05/23/17 Reported Vitamin D3 (Cholecalciferol (Vitamin D3)) 1,000 Unit Tablet 1 Tab PO BID 05/23/17 Reported Multi Vitamin Daily (Multivitamin) 1 Each Tablet 1 Each PO 05/23/17 Reported Norvasc (Amlodipine Besylate) 5 Mg Tablet 1 Tab PO DAILY 05/23/17 Reported Novolog Flexpen (Insulin Aspart) 100 Unit/1 Ml Insuln.pen 100 Unit SQ TIDAC 09/10/13 Reported Metformin Hcl 500 Mg Tablet 500 Mg PO QEVNG 09/10/13 Reported Losartan Potassium 100 Mg Tablet 100 Mg PO DAILY 09/10/13 Reported Albuterol Sulfate Hfa Inhaler (Albuterol Sulfate) 8.5 Gm Hfa.aer.ad 8.5 Gm IH PRN 09/10/13 Reported Ultram (Tramadol Hcl) 50 Mg Tablet 50 Mg PO QID 09/10/13 Reported Daily Multiple Vitamin (Multivitamin) 1 Each Tablet 1 Each PO DAILY 09/10/13 Reported Ferrous Sulfate 324 Mg Tablet.dr 65 Mg PO DAILY 2/5/14 Reported Aspirin 81 Mg Tab.chew 81 Mg PO DAILY 09/10/13 Reported Tamoxifen Citrate 20 Mg Tablet 20 Mg PO DAILY 09/10/13 Reported Zocor (Simvastatin) 20 Mg Tablet 20 Mg PO HS 09/10/13 Reported Lasix (Furosemide) 40 Mg Tablet 40 Mg PO DAILY 09/10/13 Reported Potassium Chloride 20 Meq Tab.er.prt 20 Meq PO DAILY 09/10/13 Reported Impression . 1. Acute respiratory failure, multifactorial secondary to acute nonspecific bronchitis, possible pneumonia. 2. Mild ILD/pulmonary fibrosis best visualized on high resolution CT of the chest from 03/09/2017, interstitial lung disease seen on current CT. 3. No evidence of pulmonary embolism on current CT. 4. Mild mediastinal adenopathy. 5. Gastroesophageal reflux. 6. History of breast cancer, status post mastectomy. Plan . 1. Recommend continue current medical management with nebulized treatments, steroids and oxygen supplementation. 2. Current CT is not very impressive. Only has mild ILD. It is certainly possible that this may be related to chronic silent aspiration. The patient has significant gastroesophageal reflux. 3. Followup CT in 2 months. 4. Agree with Thomas Balbuena. 5. No need for antibiotics at this time. 7. Follow up in the office with Dr. Shelby once discharged. could go home today. ? May need Bronch in future and w/u for ILD if not done yet RADHIKA SALDANA MD May 25, 2017 09:34
[2017-05-25] MEDS ORDERED: predniSONE 20 MG TABLET PO ONE (10:30)
[2017-05-25] MEDS ORDERED: METH4TAB2 PO (10:36)
--- NOTE | 2017-05-25 10:37 | PDOC ---
PROGRESS NOTES Subjective Subjective wanting to go home Objective Objective Vital Signs Date Time Temp Pulse Resp B/P (MAP) Pulse Ox O2 Delivery O2 Flow Rate FiO2 05/25/17 08:52 60 135/72 05/25/17 08:50 18 Nasal Cannula 96.0 05/25/17 08:41 96 05/25/17 07:00 98.1 98.1 Intake and Output 05/26/17 07:00 Intake Total 300 ml Balance 300 ml Intake Oral 300 ml Physical Exam Abdomen: Normal bowel sounds, Soft Heart: Regular rate, Normal S1, Normal S2 Extremities: No clubbing General: Alert HEENT: Atraumatic Lungs: Other (crackles at bases) MUSCULOSKELETAL: No deformity Neck: Supple Neuro: Normal speech Psych/Mental Status: Mental status NL Skin: No breakdown Diagnosis Problem List Problems Medical Problems: (1) Acute respiratory failure Status: Acute Assessment Assessment Problems Medical Problems: (1) Acute respiratory failure Status: Acute IMPRESSION: 1. Acute hypoxic respiratory failure, etiology not clear, could be due to interstitial lung disease with exacerbation, clinically no infection. 2. Persistent cough. Continue hydrocodone. I will add Tessalon Perles and I will give her another dose of IV steroids this morning. 3. 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 4. Hypertension. 5. Physical deconditioning. 6. History of right breast cancer with mastectomy. 7. Allergic rhinitis. 8. Non-morbid obesity. 9. Hypertension. 10. Hyperlipidemia. PLAN; 6 mts walk home oxygen, 2.5 L medrol dose pack. repeat ct in 8 weeks needs flue and pneumovax f/u pcp in 1 week Problems: Plan Plan of Care Problems Medical Problems: (1) Acute respiratory failure Status: Acute Comment Review of Relevant I have reviewed the following items thom (where applicable) has been applied. Labs Laboratory Tests Test 05/24/17 11:57 05/24/17 16:18 05/24/17 20:44 05/25/17 07:28 Glucose (Fingerstick) 122 mg/dL (70-99) 240 mg/dL (70-99) 285 mg/dL (70-99) 95 mg/dL (70-99) Medications Current Medications Insulin Aspart (NovoLOG) BIDBFRMEAL SQ ; Start 05/24/17 at 16:30 Metformin HCl (Glucophage) 500 mg QEVNG PO ; Start 05/25/17 at 18:00 Vitals/I & O Vital Sign - Last 24 Hours 05/24/17 05/24/17 05/24/17 05/24/17 14:23 14:34 15:30 17:06 Temp 97.9 97.9 Pulse 62 Resp 20 B/P (MAP) 132/68 (89) Pulse Ox 95 O2 Delivery Nasal Cannula Nasal Cannula Nasal Cannula Nasal Cannula O2 Flow Rate 3.5 3.5 3.5 3.5 05/24/17 05/24/17 05/24/17 05/24/17 19:00 20:37 20:37 20:51 Temp 98.4 98.4 Pulse 48 Resp 20 18 B/P (MAP) 134/56 (82) Pulse Ox 96 95 95 O2 Delivery Nasal Cannula Nasal Cannula Nasal Cannula Nasal Cannula O2 Flow Rate 3.5 3.0 3.0 3.0 05/24/17 05/24/17 05/25/17 05/25/17 21:51 23:00 03:00 07:00 Temp 98.3 98.3 98.1 98.3 98.3 98.1 Pulse 56 60 60 Resp 16 19 18 B/P (MAP) 135/55 (81) 130/54 (79) 135/72 (93) Pulse Ox 95 96 98 94 O2 Delivery Nasal Cannula Nasal Cannula Nasal Cannula Room Air O2 Flow Rate 3.0 3.5 3.5 05/25/17 05/25/17 05/25/17 05/25/17 08:41 08:50 08:52 08:52 Pulse 60 60 Resp 18 B/P (MAP) 135/72 135/72 Pulse Ox 96 O2 Delivery Nasal Cannula Nasal Cannula O2 Flow Rate 2.5 96.0 Intake and Output 05/25/17 05/25/17 05/26/17 15:00 23:00 07:00 Intake Total 300 ml Balance 300 ml LORRAINE ROPER MD May 25, 2017 10:37
[2017-05-25 11:00] VITALS: BP 128/81
[2017-05-25] MEDS ORDERED: metFORMIN 500 MG TABLET PO SCH (18:00)
== END 2017-05-25 15:57 | disposition home or self-care (01) | DRG 189 ==
LOC: ER 11:54 → 5 NORTH 14:00
PROVIDERS: ADMIT Internal Medicine; ATTEND Internal Medicine
DX: J96.01 Acute respiratory failure with hypoxia (principal); J18.9 Pneumonia, unspecified organism; E11.40 Type 2 diabetes mellitus with diabetic neuropathy, unspecified; E11.65 Type 2 diabetes mellitus with hyperglycemia; J44.0 Chronic obstructive pulmonary disease with (acute) lower respiratory infection; J44.1 Chronic obstructive pulmonary disease with (acute) exacerbation; J84.10 Pulmonary fibrosis, unspecified; E78.5 Hyperlipidemia, unspecified; I10 Essential (primary) hypertension; E66.09 Other obesity due to excess calories; F32.9 Major depressive disorder, single episode, unspecified; K21.9 Gastro-esophageal reflux disease without esophagitis; Z79.4 Long term (current) use of insulin; Z80.7 Family history of other malignant neoplasms of lymphoid, hematopoietic and related tissues; Z82.49 Family history of ischemic heart disease and other diseases of the circulatory system; Z82.3 Family history of stroke; Z85.3 Personal history of malignant neoplasm of breast; Z87.891 Personal history of nicotine dependence; Z90.10 Acquired absence of unspecified breast and nipple; Z90.710 Acquired absence of both cervix and uterus; Z68.37 Body mass index [BMI] 37.0-37.9, adult
CPT/HCPCS: 36415; 36600; 71010; 71275; 80047; 80053; 82805; 82962; 83735; 83880; 84484; 85007; 85025; 85610; 93005; 94250; 94620; 94640; 94760; 96374; 96375; J1200; J1815; J2920; J2930; J3010; J7512; J7613; J7620; J7626; Q9967; S0028; 92610; 99285-25

== ENCOUNTER → 2017-07-10 | Outpatient (CLI) | payer OTHER | END | disposition home or self-care (01) | LOC: PF 09:48 | DX: R06.02 Shortness of breath (principal) | CPT/HCPCS: 94010; 94729 ==

== ENCOUNTER → 2017-08-10 | Outpatient (CLI) | payer OTHER | END | disposition home or self-care (01) | LOC: CT 09:21 | DX: R91.8 Other nonspecific abnormal finding of lung field (principal); R59.9 Enlarged lymph nodes, unspecified; Q25.49 Other congenital malformations of aorta; I25.10 Atherosclerotic heart disease of native coronary artery without angina pectoris | CPT/HCPCS: 71250 ==

== ENCOUNTER → 2017-12-18 | Outpatient (CLI) | payer OTHER ==
[2017-12-18] MEDS: OXYMETAZOLINE 0.05% NASAL SPRAY 30ML BOTTLE. NS (23:37)
[2017-12-18] MEDS: ZOLPIDEM 5 MG TABLET. PO (23:38)
== END | disposition home or self-care (01) ==
LOC: SLPLAB 18:28
DX: G47.33 Obstructive sleep apnea (adult) (pediatric) (principal); I10 Essential (primary) hypertension; E11.40 Type 2 diabetes mellitus with diabetic neuropathy, unspecified; E78.5 Hyperlipidemia, unspecified; K21.9 Gastro-esophageal reflux disease without esophagitis
CPT/HCPCS: 95810

== ENCOUNTER → 2018-03-01 | Outpatient (CLI) | payer OTHER | END | disposition home or self-care (01) | LOC: CT 08:52 | DX: J84.89 Other specified interstitial pulmonary diseases (principal); J43.8 Other emphysema; I25.10 Atherosclerotic heart disease of native coronary artery without angina pectoris; R91.1 Solitary pulmonary nodule | CPT/HCPCS: 71250 ==